=== PATIENT | female | born 1975 | race Caucasian/White ===

== ENCOUNTER 2017-06-26 19:31 | Inpatient (IN) | payer OTHER, MEDICAID ==
[~2017-06-26] VITALS: Ht 162.6 cm; Wt 103.4 kg
[~2017-06-26 19:31] MED LIST: ACYCLOVIR 400400 MG PO; ALBUTEROL2.5 MG/0.5 INH; AMOXICILLIN 50500 MG PO; ASPIR 8181 MG; AUGMENTIN 875-1 EACH PO; AUGMENTIN 875875 MG PO; BENTYL 10 MG CA10 M1 PO; CELEXA20 MG PO; CHOLESTYRAMINE P4 GM PO; CHOLESTYRAMINE R5 GM MC; CIPRO500 MG PO; COLACE100 MG PO; FLEXERIL PO; GLUCOPHAGE500 MG PO; HYDROCHLOROTH12.5 M1 PO; HYDROCODONE-AP1 EAC6 PO; HYDROXYZINE HCL25 M1 PO; IBUPROFEN 800800 M1 PO; LANTUS SOL100 UNIT/1 SQ; LISINOPRIL-HCT1 EACH PO; LISINOPRIL10 MG PO; METFORMIN HCL500 MG PO; MICROZIDE12.5 MG PO; NEURONTIN600 MG PO; NORVASC2.5 MG PO; OMEGA-31000 M1 PO; OMEPRAZOLE20 M2 PO; PERCOCET 5-3251 EACH PO; PHENERGAN 25 MG25 M1 PO; PHENERGAN 25 MG25 MG PO; PHENERGAN25 M1 RC; PREDNISONE 10 M10 MG PO; PRILOSEC 20 MG20 MG PO; PROAIR HFA8.5 GM INH; PROCARDIA10 MG PO; PROTONIX40 M4 PO; PULMICORT0.5 MG/22 INH; SIMVASTATIN20 MG PO; SYMBICORT160 MCG/4. INH; SYMBICORT80 MCG/4.1; TIZANIDINE HCL4 M1 PO; TOPAMAX 25 MG T25 M1 PO; TRAMADOL 50 MG50 MG; TRAZODONE HCL50 MG PO; TRICOR145 MG PO; VICTOZA0.6 MG/0.1 SUBQ; WELLBUTRIN SR100 MG PO; ZANTAC 150MG T150 MG PO; ZESTORETIC 10-1 EACH PO; ZESTORETIC 20-1 EAC3; ZOCOR20 MG PO
[2017-06-26 19:35] VITALS: BP 138/75
[2017-06-26 20:08] LABS: HEMATOCRIT 43.4 % (37.0-47.0); HEMOGLOBIN 14.6 gm/dL (12.0-15.0); MCH 30.5 pg (26.0-34.0); MCHC 33.5 g/dL (28.0-37.0); MCV 91.1 fL (80.0-100.0); MPV 7.7 fl. (7.2-11.1); NUCLEATED RBCS 0 /100WBC; PLATELET COUNT* 457 thou/uL (150-400); RBC 4.77 mil/uL (4.20-5.00)
[2017-06-26 20:17] LABS: ANION GAP 10 mmol/L (7-16); BUN 13 mg/dL (7-18); CALCIUM 8.9 mg/dL (8.5-10.1); CHLORIDE 93 mmol/L (98-107); CO2 28 mmol/L (21-32); CREATININE 0.7 mg/dL (0.6-1.3); GLUCOSE 246 mg/dL (70-99); POTASSIUM 3.5 mmol/L (3.5-5.1); SODIUM 131 mmol/L (136-145)
[2017-06-26 20:22] LABS: ABSOLUTE LYMPHOCYTES 4.8 thou/uL (0.8-5.3); ABSOLUTE MONOCYTES 1.3 thou/uL (0.0-1.2); ABSOLUTE NEUTROPHILS 14.9 thou/uL (1.6-8.1); PLATELET ESTIMATE ADEQUATE
[2017-06-26 20:32] LABS: ALBUMIN 3.5 g/dL (3.4-5.0); ALKALINE PHOSPHATASE 99 U/L (46-116); LIPASE 97 U/L (73-393); NT-PRO BRAIN NAT PEPTIDE 23 pg/mL (<300); SGOT 20 U/L (15-37); SGPT 36 U/L (30-65); TOTAL BILIRUBIN 0.4 mg/dL (<0.1-1.0); TOTAL PROTEIN 7.9 g/dL (6.4-8.2); TROPONIN-I LEVEL <0.06 ng/mL (<0.06)
[2017-06-26 22:56] LABS: INFLUENZA A ANTIGEN None Detected (None Detect); INFLUENZA B ANTIGEN None Detected (None Detect)
[2017-06-26 23:07] VITALS: BP 147/78
[2017-06-27 00:27] VITALS: BP 137/77
[2017-06-27 00:50] VITALS: BP 137/77
[2017-06-27 04:19] VITALS: BP 137/77
[2017-06-27 04:25] LABS: URINE BILIRUBIN NEGATIVE (Negative); URINE BLOOD NEGATIVE (Negative); URINE CLARITY CLEAR; URINE COLOR YELLOW; URINE GLUCOSE-RANDOM 3+ (Negative); URINE KETONES NEGATIVE (Negative); URINE LEUKOCYTES-REFLEX NEGATIVE (Negative); URINE NITRITE-REFLEX NEGATIVE (Negative); URINE PROTEIN NEGATIVE (Negative); URINE SPECIFIC GRAVITY <= 1.005 (1.005-1.030); URINE UROBILINOGEN 0.2 E.U./dl (0.2-1.0)
--- NOTE | 2017-06-27 06:35 | NUR ---
PT ADMITTED WITH COPD EXACERBATION AND HYPOXIA. PT IS ON 4L PER NC WITH [place] SATS. PT GETS BREATHING TX Q4 AND PRN. PT GIVEN IV SOLUMEDROL AND LEVAQUIN IN ED. PT FLU SWAB WAS NEGATIVE. PT DENIES NEED FOR PAIN MEDICATION. PT DENIES N/V. PT HAS IV FLUIDS INFUSING IN LEFT FOREARM. PT IS UP AD FLORA WITH STEADY GAIT. PT HAS NO OTHER CONCERNS AT THIS TIME. SEE ASSESSMENT AND VITALS FOR OTHER DETAILS. CALL LIGHT WITHIN REACH, WILL CONTINUE TO MONITOR
[2017-06-27 09:45] VITALS: BP 128/77
--- NOTE | 2017-06-27 15:34 | EKG ---
[place] [address] ELECTROCARDIOGRAM REPORT Name: OPAL DOVE Room: [address] ADM IN M.R.#: [id number] Admission: 06/26/17 Attend Phys: Simi Dale MD Discharge: Date of : 75 Report #: [id number] THIS REPORT FOR: //name// [facility] ED Test Date: 2017-06-26 Test Time: 19:57:57 Pat Name: OPAL DOVE Department: Room: [facility] Gender: F Process Helper: KATH : 1975 Requested By: Juana Ovalle Order Number: [id number] : Ariel Aquino Measurements Intervals [place] Rate: 107 P: 7 DC: 157 QRS: 12 QRSD: 65 T: 46 QT: 313 QTc: 418 Interpretive Statements Sinus tachycardia Low voltage, precordial leads Compared to ECG 11/30/2016 09:16:59 Low QRS voltage now present Heart rate has increased Electronically Signed On 06-27-2017 15:34:04 COATING MIXER by Ariel Aquino [email or web address] <ELECTRONICALLY SIGNED> By: Ariel Aquino MD, [facility] 06/27/17 1534 56 56 Ariel Aquino MD, [facility] /EPI
[2017-06-27 15:44] VITALS: BP 134/87
--- NOTE | 2017-06-27 16:01 | NUR ---
INTRODUCED ROLE OF CM TO PT. SHE REMEMBERED ME FROM WHEN SHE WAS IN IN OCT. SHE SAID SHE LIVES WITH HER . SHE IS MAINLY INDEPENDENT AT HOME. DRIVES,COOKS,ETC. SHE HAS BACK PROBLEMS AND HER HELPS HER NEEDED. SHE HAS O2 FROM [facility] AND HOME NEBULIZER. SHE DOES NOT FEEL SHE WILL HAVE ANY DISCHARGE NEEDS.
[2017-06-27 17:33] LABS: HCO3 25.5 mmol/L (22.0-26.0); PCO2 40.1 mmHg (35.0-45.0); pH 7.421 (7.340-7.450)
--- NOTE | 2017-06-27 17:48 | NUR ---
PATIENT IS ALERT AND ORIENTED TODAY UP AD FLORA IN ROOM. PATIENT IS ON 4 LITERS OF OXYGEN THROUGH NASAL CANNULA. VITAL SIGNS STABLE. NO COMPLAINTS OF ANY PAIN TODAY. CALL LIGHT IN REACH, WILL CONTINUE TO MONITOR.
[2017-06-28] VITALS: BP 128/76
[2017-06-28 04:52] LABS: ABSOLUTE BASOPHILS 0.2 thou/uL (0.0-0.2); ABSOLUTE LYMPHOCYTES 1.8 thou/uL (0.8-5.3); ABSOLUTE MONOCYTES 0.9 thou/uL (0.0-1.2); ABSOLUTE NEUTROPHILS 22.7 thou/uL (1.6-8.1); BASOPHILS 0.8 %; HEMATOCRIT 39.8 % (37.0-47.0); HEMOGLOBIN 13.3 gm/dL (12.0-15.0); LYMPHOCYTES 7.1 %; MCH 30.6 pg (26.0-34.0); MCHC 33.4 g/dL (28.0-37.0); MCV 91.8 fL (80.0-100.0); MONOCYTES 3.7 %; MPV 7.7 fl. (7.2-11.1); NUCLEATED RBCS 0 /100WBC; PLATELET COUNT* 485 thou/uL (150-400); POLYS 88.4 %; RBC 4.33 mil/uL (4.20-5.00); RDW-CV 14.1 % (10.5-14.5); WBC 25.7 thou/uL (4.0-11.0)
[2017-06-28 05:02] LABS: ALBUMIN 3.2 g/dL (3.4-5.0); CALCIUM 8.4 mg/dL (8.5-10.1); CREATININE 0.7 mg/dL (0.6-1.3); MAGNESIUM 1.8 mg/dL (1.8-2.4); POTASSIUM 3.9 mmol/L (3.5-5.1); TOTAL BILIRUBIN 0.4 mg/dL (<0.1-1.0); TOTAL PROTEIN 7.3 g/dL (6.4-8.2)
--- NOTE | 2017-06-28 05:03 | NUR ---
PATIENT SLEPT WELL DURING THIS SHIFT. PT ALERT/ORIENTED X4 AND PLEASANT. PT SITTING IN CHAIR AT BEGINNING OF SHIFT WITHOUT OXYGEN. SATS TAKEN AND PT FOUND TO BE AT 84%. NASAL CANNULA REPLACED AND OXYGEN SET AT 2 LITERS DOWN FROM 4 LITERS. RECHECKED PATIENT IN AN HOUR AND PT FOUND TO BE AT 90-91% ON 2LITERS. PT GIVEN TWO TYLENOL AT HS FOR HEADACHE. AT BEDSIDE AND STAYED THE NIGHT. FREQUENTLY USED ITEMS AND CALL LIGHT WITHIN REACH. SIDERAILS UPX2. WILL CONTINUE TO MONITOR.
[2017-06-28 09:00] VITALS: BP 137/73
[2017-06-28 15:54] VITALS: BP 131/84
--- NOTE | 2017-06-28 18:50 | NUR ---
PATIENT IS ALERT AND ORIENTED TODAY VERY PLEASANT TODAY. UP AD FLORA IN ROOM WITH EXTENSION ON OXYGEN TUBING. VITAL SIGNS STABLE ON 2 LITERS OF OXYGEN THROUGH NASAL CANNULA. NO COMPLAINTS OF PAIN OR NAUSEA TODAY. BLOOD SUGARS HAVE BEEN ELEVATED, HAS BEEN EATING OUTSIDE FOOD THAT FAMILY IS BRINGING IN. INSULIN HAS BEEN INCREASED AND STEROIDS HAVE BEEN DECREASED. CALL LIGHT IN REACH, FAMILY AT BEDSIDE, WILL CONTINUE TO MONITOR.
[2017-06-28 19:50] VITALS: BP 143/78
[2017-06-28] MEDS ORDERED: METFORMIN HCL500 MG PO (21:45)
[2017-06-28 23:50] VITALS: BP 136/70
[2017-06-29 04:26] LABS: HEMATOCRIT 40.3 % (37.0-47.0); HEMOGLOBIN 13.2 gm/dL (12.0-15.0); MCH 30.4 pg (26.0-34.0); MCHC 32.9 g/dL (28.0-37.0); MCV 92.5 fL (80.0-100.0); MPV 7.6 fl. (7.2-11.1); RBC 4.35 mil/uL (4.20-5.00); RDW-CV 14.1 % (10.5-14.5); WBC 22.3 thou/uL (4.0-11.0)
[2017-06-29 04:37] LABS: CALCIUM 8.7 mg/dL (8.5-10.1); CREATININE 0.8 mg/dL (0.6-1.3); MAGNESIUM 2.1 mg/dL (1.8-2.4); POTASSIUM 4.4 mmol/L (3.5-5.1)
[2017-06-29 06:18] VITALS: BP 138/81
[2017-06-29 11:00] VITALS: BP 128/79
--- NOTE | 2017-06-29 14:06 | NUR ---
PATIENT IS ALERT AND ORIENTED TODAY VERY PLEASANT. UP AD FLORA IN ROOM WITH EXTENDED OXYGEN TUBING. NO COMPLAINTS OF ANY PAIN TODAY. IV IN LEFT HAND WORKS WELL FOR ANTIBIOTICS. OXYGEN LEVELS HAVE BEEN GOOD ON 2 LITERS OF OXYGEN. VITAL SIGNS STABLE. CALL LIGHT IN REACH, WILL GREGG TO MONITOR.
--- NOTE | 2017-06-29 16:12 | NUR ---
ASSUMED CARE OF PATIENT AT 1500. REPORT RECEIVED FROM ROSSANA DEE. CONTINUES ON [employer] AVIONICS, TRACING NSR. AGREE WITH PREVIOUS ASSESSMENT. UP IN CHAIR AT PRESENT TIME. CALL LIGHT WITHIN REACH. WILL CONTINUE WITH PLAN OF CARE.
[2017-06-29 17:21] VITALS: BP 179/85
--- NOTE | 2017-06-29 18:54 | NUR ---
PATIENT HAS DENIED PAIN WHEN ASKED. CONTINUES ON ROOM AIR WITH O2 SATS 92-94%. CLIENT SERVICE ADMINISTRATOR DC'D. PATIENT'S HOME MEDS RESUMED. PATIENT UP AD FOLRA IN ROOM. SALINE LOCK PATENT. HOPEFUL TO BE DISCHARGED SOON. HOURLY ROUNDING COMPLETED. CALL LIGHT WITHIN REACH. WILL CONTINUE WITH PLAN OF CARE.
[2017-06-29 20:00] VITALS: BP 146/74
--- NOTE | 2017-06-30 03:53 | NUR ---
ASSUMED CARE OF PATIENT AT 1900 THE PATIENT AMBULATED TO SHOWER AT SHIFT START O2 SAT MAINTAINED ON RA 92% CONTINUES TO BE UP AD FLORA DENIES ACUTE PAIN N/V,SOA DISTRESS THE ROUTINE REGIMEN CONTINUES TO BE EFFECTIVE FOR SX MANAGEMENT SAFETY INTERVENTIONS CONTINUE BED LOWERED WHEELS LOCKED CALL LIGHT IN REACH SIDE RAILS UP REPORT TO BE GIVEN TO ONCMARIE TRACY
[2017-06-30 04:16] LABS: HEMATOCRIT 39.1 % (37.0-47.0); MCH 30.6 pg (26.0-34.0); MCHC 33.3 g/dL (28.0-37.0); MCV 91.9 fL (80.0-100.0); MPV 7.4 fl. (7.2-11.1); RBC 4.26 mil/uL (4.20-5.00); RDW-CV 14.3 % (10.5-14.5); WBC 17.8 thou/uL (4.0-11.0)
[2017-06-30 04:34] LABS: ALBUMIN 2.8 g/dL (3.4-5.0); CALCIUM 8.7 mg/dL (8.5-10.1); CREATININE 0.7 mg/dL (0.6-1.3); MAGNESIUM 1.6 mg/dL (1.8-2.4); TOTAL BILIRUBIN 0.3 mg/dL (<0.1-1.0); TOTAL PROTEIN 6.6 g/dL (6.4-8.2)
[2017-06-30 04:35] LABS: POTASSIUM 3.3 mmol/L (3.5-5.1)
[2017-06-30 08:00] VITALS: BP 122/71
--- NOTE | 2017-06-30 10:34 | NUR ---
ASSUMED CARE OF PT AROUND 0830 THIS AM. REFER TO ASSESSMENT. PT WANTS TO GO HOME TODAY. AWAITING PHYSICIAN FOR DISCHARGE ORDERS. PT'S POTASSIUM AND MAGNESIUM REPLACED THIS SHIFT. NO OTHER CONCERNS AT THIS TIME. CLWR. WCTM.
[2017-06-30] MEDS ORDERED: PREDNISONE 10 M10 MG PO (13:24)
[2017-06-30 13:26] LABS: MAGNESIUM 1.8 mg/dL (1.8-2.4)
[2017-06-30] MEDS ORDERED: LEVAQUIN 750 M750 MG PO (13:26)
[2017-06-30 13:27] VITALS: BP 122/71
[2017-06-30 13:30] LABS: POTASSIUM 5.4 mmol/L (3.5-5.1)
[2017-06-30] MEDS ORDERED: NICOTINE TRANSD21 M1 TOP (13:33)
--- NOTE | 2017-06-30 14:03 | NUR ---
PT GIVEN DISCHARGE INSTRUCTIONS. VERBALIZES UNDERSTANDING. SCRIPTS GIVEN TO PT. PT DISCHARGED PER W/C AND NURSING STAFF WITH SPOUSE AND PRIVATE VEHICLE. PT REPORTS DISCHARGED WITH ALL BELONGINGS. NO OTHER CONCERNS AT THIS TIME.
== END 2017-06-30 14:00 | disposition home or self-care (01) | DRG 189 ==
LOC: M.ERS 19:31 → M.TBA-ER 21:56 → M.3W 21:56
PROVIDERS: Family Medicine; Personal Emergency Response Attendant; Physician Assistant; ADMIT Internal Medicine
DX: J96.01 Acute respiratory failure with hypoxia (principal); J44.1 Chronic obstructive pulmonary disease with (acute) exacerbation; I10 Essential (primary) hypertension; E66.01 Morbid (severe) obesity due to excess calories; J40 Bronchitis, not specified as acute or chronic; E11.65 Type 2 diabetes mellitus with hyperglycemia; F17.210 Nicotine dependence, cigarettes, uncomplicated; Z99.81 Dependence on supplemental oxygen; Z90.49 Acquired absence of other specified parts of digestive tract; Z90.710 Acquired absence of both cervix and uterus; Z68.39 Body mass index [BMI] 39.0-39.9, adult; Z88.1 Allergy status to other antibiotic agents; Z79.4 Long term (current) use of insulin; Z79.899 Other long term (current) drug therapy; Z71.6 Tobacco abuse counseling

== ENCOUNTER 2017-12-10 19:44 | Emergency (ER) | payer OTHER, MEDICAID ==
[~2017-12-10] VITALS: Ht 162.6 cm; Wt 103.4 kg
[~2017-12-10 19:44] MED LIST changes: +LEVAQUIN 750 M750 MG PO; +NICOTINE TRANSD21 M1 TOP
[2017-12-10 20:11] LABS: ABSOLUTE BASOPHILS 0.2 thou/uL (0.0-0.2); ABSOLUTE EOSINOPHILS 0.4 thou/uL (0.0-0.7); ABSOLUTE LYMPHOCYTES 4.5 thou/uL (0.8-5.3); ABSOLUTE MONOCYTES 0.7 thou/uL (0.0-1.2); ABSOLUTE NEUTROPHILS 6.7 thou/uL (1.6-8.1); BASOPHILS 1.4 %; EOSINOPHILS 2.9 %; HEMATOCRIT 39.5 % (37.0-47.0); HEMOGLOBIN 13.6 gm/dL (12.0-15.0); MCH 31.6 pg (26.0-34.0); MCHC 34.5 g/dL (28.0-37.0); MCV 91.4 fL (80.0-100.0); MONOCYTES 5.7 %; MPV 7.6 fl. (7.2-11.1); NUCLEATED RBCS 0 /100WBC; PLATELET COUNT* 438 thou/uL (150-400); RBC 4.32 mil/uL (4.20-5.00); RDW-CV 12.8 % (10.5-14.5); WBC 12.5 thou/uL (4.0-11.0)
[2017-12-10] MEDS ORDERED: SYMBICORT160 MCG/4. INH (20:11)
[2017-12-10 20:19] LABS: ANION GAP 10 mmol/L (7-16); BUN 11 mg/dL (7-18); CALCIUM 8.8 mg/dL (8.5-10.1); CHLORIDE 100 mmol/L (98-107); CO2 27 mmol/L (21-32); CREATININE 0.7 mg/dL (0.6-1.3); GLUCOSE 211 mg/dL (70-99); POTASSIUM 3.6 mmol/L (3.5-5.1); SODIUM 137 mmol/L (136-145)
[2017-12-10] MEDS ORDERED: ROBAXIN 750 MG750 M1 PO (20:20)
[2017-12-10] MEDS ORDERED: NORCO 5-325 TA1 EACH PO (20:21)
[2017-12-10] MEDS ORDERED: NIFEDIPINE10 MG PO (20:21)
[2017-12-10] MEDS ORDERED: CREON DR 24,001 EACH PO (20:21)
[2017-12-10] MEDS ORDERED: ONDANSETRON HCL4 M2 PO (20:22)
[2017-12-10] MEDS ORDERED: ZESTORETIC 10-1 EACH PO (20:22)
[2017-12-10] MEDS ORDERED: BIOTIN10000 MC1 PO (20:25)
[2017-12-10 20:26] LABS: ALBUMIN 3.5 g/dL (3.4-5.0); ALKALINE PHOSPHATASE 55 U/L (46-116); LIPASE 102 U/L (73-393); SGOT 26 U/L (15-37); SGPT 55 U/L (30-65); TOTAL BILIRUBIN 0.3 mg/dL (<0.1-1.0); TOTAL PROTEIN 6.9 g/dL (6.4-8.2); TROPONIN-I LEVEL <0.06 ng/mL (<0.06)
[2017-12-10] MEDS ORDERED: CENTRUM WOMEN1 EACH PO (20:26)
[2017-12-10] MEDS ORDERED: CALCIUM 500 +1 EAC5 PO (20:26)
[2017-12-10] MEDS ORDERED: B12INJ (20:27)
[2017-12-10] MEDS ORDERED: ZYRTEC10 M5 PO (20:28)
[2017-12-10] MEDS ORDERED: CARAFATE 1 GM TA1 GM PO (21:05)
[2017-12-10 21:12] LABS: URINE BILIRUBIN NEGATIVE (Negative); URINE BLOOD NEGATIVE (Negative); URINE CLARITY CLEAR; URINE COLOR YELLOW; URINE GLUCOSE-RANDOM NEGATIVE (Negative); URINE KETONES NEGATIVE (Negative); URINE LEUKOCYTES-REFLEX NEGATIVE (Negative); URINE NITRITE-REFLEX NEGATIVE (Negative); URINE PROTEIN NEGATIVE (Negative); URINE SPECIFIC GRAVITY 1.025 (1.005-1.030); URINE UROBILINOGEN 0.2 E.U./dl (0.2-1.0)
[2017-12-10 21:29] VITALS: BP 128/73
--- NOTE | 2017-12-11 10:37 | EKG ---
[place] [address] ELECTROCARDIOGRAM REPORT Name: DERRELLOPAL Room: [facility]#: [id number] Admission: 12/10/17 Attend Phys: Discharge: 12/10/17 Date of : 75 Report #: [id number] THIS REPORT FOR: //name// [facility] ED Test Date: 2017-12-10 Test Time: 19:54:32 Pat Name: OPAL DOVE Department: Room: Gender: F Electronic Calibration Technician: BRENNON : 1975 Requested By: Ericka Childress Order Number: [id number] MD: Ricardo Atkinson Measurements Intervals [place] Rate: 91 P: 6 AL: 161 QRS: -16 QRSD: 82 T: 29 QT: 356 QTc: 439 Interpretive Statements Sinus rhythm Borderline left axis deviation Compared to ECG 06/26/2017 19:57:57 Sinus tachycardia no longer present Electronically Signed On 12-11-2017 10:37:46 CDT by Ricardo Atkinson [email or web address] <ELECTRONICALLY SIGNED> By: Ricardo Atkinson MD, [facility] 12/11/17 1037 53 53 Ricardo Atkinson MD, FACC /EPI
== END 2017-12-10 21:30 | disposition home or self-care (01) ==
LOC: M.ERS 19:44
PROVIDERS: Emergency Medicine
DX: R07.89 Other chest pain (principal); I10 Essential (primary) hypertension; J44.9 Chronic obstructive pulmonary disease, unspecified; E11.9 Type 2 diabetes mellitus without complications; E66.01 Morbid (severe) obesity due to excess calories; F17.210 Nicotine dependence, cigarettes, uncomplicated; Z68.39 Body mass index [BMI] 39.0-39.9, adult; Z90.710 Acquired absence of both cervix and uterus; Z88.1 Allergy status to other antibiotic agents; Z79.4 Long term (current) use of insulin

== ENCOUNTER 2018-03-27 20:15 | Emergency (ER) | payer OTHER, MEDICAID ==
[~2018-03-27] VITALS: Ht 162.6 cm; Wt 103.4 kg
[~2018-03-27 20:15] MED LIST changes: +B12INJ; +BIOTIN10000 MC1 PO; +CALCIUM 500 +1 EAC5 PO; +CARAFATE 1 GM TA1 GM PO; +CENTRUM WOMEN1 EACH PO; +CREON DR 24,001 EACH PO; +NIFEDIPINE10 MG PO; +NORCO 5-325 TA1 EACH PO; +ONDANSETRON HCL4 M2 PO; +ROBAXIN 750 MG750 M1 PO; +ZYRTEC10 M5 PO
[2018-03-27] MEDS ORDERED: FISH OIL 1,001000 M2 PO (20:27)
[2018-03-27 21:09] LABS: URINE BILIRUBIN NEGATIVE (Negative); URINE BLOOD NEGATIVE (Negative); URINE CLARITY CLEAR; URINE COLOR YELLOW; URINE GLUCOSE-RANDOM NEGATIVE (Negative); URINE KETONES NEGATIVE (Negative); URINE LEUKOCYTES NEGATIVE (Negative); URINE NITRITE NEGATIVE (Negative); URINE PROTEIN NEGATIVE (Negative); URINE SPECIFIC GRAVITY 1.015 (1.005-1.030)
[2018-03-27 21:14] LABS: ABSOLUTE BASOPHILS 0.1 thou/uL (0.0-0.2); ABSOLUTE EOSINOPHILS 0.4 thou/uL (0.0-0.7); ABSOLUTE LYMPHOCYTES 5.4 thou/uL (0.8-5.3); ABSOLUTE MONOCYTES 0.8 thou/uL (0.0-1.2); ABSOLUTE NEUTROPHILS 6.8 thou/uL (1.6-8.1); BASOPHILS 0.9 %; EOSINOPHILS 2.8 %; HEMATOCRIT 40.6 % (37.0-47.0); HEMOGLOBIN 13.7 gm/dL (12.0-15.0); MCHC 33.6 g/dL (28.0-37.0); MCV 92.2 fL (80.0-100.0); MONOCYTES 5.8 %; MPV 7.5 fl. (7.2-11.1); NUCLEATED RBCS 0 /100WBC; PLATELET COUNT* 448 thou/uL (150-400); POLYS 50.5 %; RBC 4.41 mil/uL (4.20-5.00); RDW-CV 12.7 % (10.5-14.5); WBC 13.5 thou/uL (4.0-11.0)
[2018-03-27 21:17] LABS: AMP/METHAMP Negative (Negative); BARBITURATES Negative (Negative); BENZODIAZEPINES Negative (Negative); COCAINE Negative (Negative); METHADONE Negative (Negative); OPIATES Negative (Negative); PCP Negative (Negative); THC Negative (Negative)
[2018-03-27 21:22] LABS: ANION GAP 6 mmol/L (7-16); BUN 11 mg/dL (7-18); CALCIUM 9.4 mg/dL (8.5-10.1); CHLORIDE 99 mmol/L (98-107); CO2 27 mmol/L (21-32); CREATININE 0.8 mg/dL (0.6-1.3); GLUCOSE 241 mg/dL (70-99); POTASSIUM 3.6 mmol/L (3.5-5.1); SODIUM 132 mmol/L (136-145)
[2018-03-27 21:29] LABS: ALBUMIN 3.9 g/dL (3.4-5.0); ALKALINE PHOSPHATASE 52 U/L (46-116); AMYLASE 27 U/L (25-115); LIPASE 134 U/L (73-393); SGOT 16 U/L (15-37); SGPT 36 U/L (30-65); TOTAL BILIRUBIN 0.3 mg/dL (<0.1-1.0); TOTAL PROTEIN 7.3 g/dL (6.4-8.2); TROPONIN-I LEVEL <0.06 ng/mL (<0.06)
[2018-03-27] MEDS ORDERED: PHENERGAN 25 MG25 M1 PO (23:25)
[2018-03-27] MEDS ORDERED: NORCO 5-325 TA1 EACH PO (23:25)
[2018-03-27 23:49] VITALS: BP 135/81
--- NOTE | 2018-03-28 16:40 | EKG ---
[place] [address] ELECTROCARDIOGRAM REPORT Name: DOVEOPAL Room: [facility]#: [id number] Admission: 03/27/18 Attend Phys: Discharge: 03/27/18 Date of : 75 Report #: [id number] THIS REPORT FOR: //name// [facility] ED Test Date: 2018-03-27 Test Time: 21:23:50 Pat Name: OPAL DOVE Department: Room: Gender: F Head Sugar Reprocess Operator: : 1975 Requested By: Lisbeth Ahmadi Order Number: [id number] : Ariel Aquino Measurements Intervals [place] Rate: 87 P: 27 MA: 169 QRS: -5 QRSD: 85 T: 26 QT: 358 QTc: 431 Interpretive Statements Sinus rhythm Compared to ECG 12/10/2017 19:54:32 No significant changes Electronically Signed On 03-28-2018 16:39:56 CDT by Ariel Aquino [email or web address] <ELECTRONICALLY SIGNED> By: Ariel Aquino MD, FACC 03/28/18 1639 [id number] Ariel Aquino MD, FACC /EPI
== END 2018-03-27 23:51 | disposition home or self-care (01) ==
LOC: M.ERS 20:15
PROVIDERS: Nurse Practitioner Family
DX: R10.11 Right upper quadrant pain (principal); E11.65 Type 2 diabetes mellitus with hyperglycemia; N83.202 Unspecified ovarian cyst, left side; I10 Essential (primary) hypertension; J45.909 Unspecified asthma, uncomplicated; Z90.49 Acquired absence of other specified parts of digestive tract; Z98.890 Other specified postprocedural states; J44.9 Chronic obstructive pulmonary disease, unspecified; E66.01 Morbid (severe) obesity due to excess calories; Z68.39 Body mass index [BMI] 39.0-39.9, adult; F17.210 Nicotine dependence, cigarettes, uncomplicated; Z88.1 Allergy status to other antibiotic agents

== ENCOUNTER 2018-08-23 17:07 | Emergency (ER) | payer OTHER, MEDICAID ==
[~2018-08-23] VITALS: Ht 162.6 cm; Wt 101.2 kg
[~2018-08-23 17:07] MED LIST changes: +FISH OIL 1,001000 M2 PO
[2018-08-23] MEDS ORDERED: ROBAXIN500 MG PO (17:31)
[2018-08-23] MEDS ORDERED: IBUPROFEN 800800 M1 PO (17:31)
[2018-08-23 18:12] VITALS: BP 141/82
== END 2018-08-23 18:12 | disposition home or self-care (01) ==
LOC: M.ERS 17:07
DX: S43.081A Other subluxation of right shoulder joint, initial encounter (principal); F17.210 Nicotine dependence, cigarettes, uncomplicated; I10 Essential (primary) hypertension; J45.909 Unspecified asthma, uncomplicated; J44.9 Chronic obstructive pulmonary disease, unspecified; E11.9 Type 2 diabetes mellitus without complications; E66.01 Morbid (severe) obesity due to excess calories; Z68.38 Body mass index [BMI] 38.0-38.9, adult; Z79.4 Long term (current) use of insulin; Z88.1 Allergy status to other antibiotic agents; Z98.890 Other specified postprocedural states; Z90.89 Acquired absence of other organs; Z90.710 Acquired absence of both cervix and uterus; Z90.49 Acquired absence of other specified parts of digestive tract; X50.1XXA Overexertion from prolonged static or awkward postures, initial encounter; Y92.89 Other specified places as the place of occurrence of the external cause; Y93.89 Activity, other specified; Y99.8 Other external cause status

== ENCOUNTER 2018-12-12 15:50 | Emergency (ER) | payer OTHER, MEDICAID ==
[~2018-12-12] VITALS: Ht 162.6 cm; Wt 103.4 kg
[~2018-12-12 15:50] MED LIST changes: +ROBAXIN500 MG PO
[2018-12-12 16:10] LABS: URINE BILIRUBIN NEGATIVE (Negative); URINE BLOOD NEGATIVE (Negative); URINE CLARITY CLEAR; URINE COLOR YELLOW; URINE GLUCOSE-RANDOM NEGATIVE (Negative); URINE KETONES NEGATIVE (Negative); URINE LEUKOCYTES-REFLEX NEGATIVE (Negative); URINE NITRITE-REFLEX NEGATIVE (Negative); URINE PROTEIN NEGATIVE (Negative); URINE UROBILINOGEN 0.2 E.U./dl (0.2-1.0)
[2018-12-12 16:47] LABS: ABSOLUTE BASOPHILS 0.2 thou/uL (0.0-0.2); ABSOLUTE EOSINOPHILS 0.2 thou/uL (0.0-0.7); ABSOLUTE MONOCYTES 0.8 thou/uL (0.0-1.2); ABSOLUTE NEUTROPHILS 8.7 thou/uL (1.6-8.1); BASOPHILS 1.4 %; EOSINOPHILS 1.7 %; HEMOGLOBIN 13.3 gm/dL (12.0-15.0); LYMPHOCYTES 28.6 %; MCH 30.7 pg (26.0-34.0); MCHC 33.2 g/dL (28.0-37.0); MCV 92.4 fL (80.0-100.0); MONOCYTES 5.9 %; MPV 7.7 fl. (7.2-11.1); NUCLEATED RBCS 0 /100WBC; PLATELET COUNT* 471 thou/uL (150-400); POLYS 62.4 %; RBC 4.33 mil/uL (4.20-5.00); RDW-CV 13.6 % (10.5-14.5)
[2018-12-12 16:52] LABS: CALCIUM 8.9 mg/dL (8.5-10.1); POTASSIUM 3.9 mmol/L (3.5-5.1)
[2018-12-12 16:56] LABS: ALBUMIN 3.5 g/dL (3.4-5.0); TOTAL BILIRUBIN 0.3 mg/dL (<0.1-1.0); TOTAL PROTEIN 6.8 g/dL (6.4-8.2)
[2018-12-12 17:17] LABS: AMP/METHAMP Negative (Negative); BARBITURATES Negative (Negative); BENZODIAZEPINES Negative (Negative); COCAINE Negative (Negative); METHADONE Negative (Negative); OPIATES Negative (Negative); PCP Negative (Negative); THC POSITIVE (Negative)
[2018-12-12] MEDS ORDERED: NORCO 5-325 TA1 EAC1 PO (18:26)
[2018-12-12] MEDS ORDERED: CITRATE OF MAG296 ML PO (18:26)
[2018-12-12 18:52] VITALS: BP 113/67
== END 2018-12-12 18:53 | disposition home or self-care (01) ==
LOC: M.ERS 15:50
PROVIDERS: Physician Assistant
DX: R10.13 Epigastric pain (principal); R11.2 Nausea with vomiting, unspecified; F17.210 Nicotine dependence, cigarettes, uncomplicated; I10 Essential (primary) hypertension; J45.909 Unspecified asthma, uncomplicated; E11.9 Type 2 diabetes mellitus without complications; J44.9 Chronic obstructive pulmonary disease, unspecified; E66.01 Morbid (severe) obesity due to excess calories; Z68.39 Body mass index [BMI] 39.0-39.9, adult; Z98.890 Other specified postprocedural states; Z90.49 Acquired absence of other specified parts of digestive tract; Z90.89 Acquired absence of other organs; Z90.710 Acquired absence of both cervix and uterus; Z88.1 Allergy status to other antibiotic agents; Z79.4 Long term (current) use of insulin

== ENCOUNTER 2019-01-11 18:43 | Emergency (ER) | payer OTHER, MEDICAID ==
[~2019-01-11] VITALS: Ht 162.6 cm; Wt 103.4 kg
[~2019-01-11 18:43] MED LIST changes: +CITRATE OF MAG296 ML PO; +NORCO 5-325 TA1 EAC1 PO
[2019-01-11 20:13] LABS: ABSOLUTE BASOPHILS 0.2 thou/uL (0.0-0.2); ABSOLUTE EOSINOPHILS 0.3 thou/uL (0.0-0.7); ABSOLUTE LYMPHOCYTES 3.5 thou/uL (0.8-5.3); ABSOLUTE MONOCYTES 0.7 thou/uL (0.0-1.2); ABSOLUTE NEUTROPHILS 8.8 thou/uL (1.6-8.1); BASOPHILS 1.3 %; EOSINOPHILS 2.4 %; HEMATOCRIT 40.7 % (37.0-47.0); HEMOGLOBIN 13.5 gm/dL (12.0-15.0); MCH 30.5 pg (26.0-34.0); MCHC 33.2 g/dL (28.0-37.0); MONOCYTES 5.4 %; MPV 7.7 fl. (7.2-11.1); NUCLEATED RBCS 0 /100WBC; PLATELET COUNT* 480 thou/uL (150-400); POLYS 64.9 %; RBC 4.43 mil/uL (4.20-5.00); RDW-CV 13.3 % (10.5-14.5); WBC 13.5 thou/uL (4.0-11.0)
[2019-01-11 20:19] LABS: CREATININE 0.9 mg/dL (0.6-1.3); POTASSIUM 4.1 mmol/L (3.5-5.1)
[2019-01-11 20:24] LABS: ALBUMIN 3.6 g/dL (3.4-5.0); TOTAL BILIRUBIN 0.3 mg/dL (<0.1-1.0); TOTAL PROTEIN 7.4 g/dL (6.4-8.2)
[2019-01-11] MEDS ORDERED: ACETAMINOPHEN-1 EAC1 PO (20:35)
[2019-01-11] MEDS ORDERED: FLAGYL500 M1 PO (20:35)
[2019-01-11 21:06] VITALS: BP 135/82
== END 2019-01-11 21:09 | disposition home or self-care (01) ==
LOC: M.ERS 18:43
PROVIDERS: Physician Assistant
DX: E11.65 Type 2 diabetes mellitus with hyperglycemia (principal); K11.20 Sialoadenitis, unspecified; H66.91 Otitis media, unspecified, right ear; I10 Essential (primary) hypertension; J44.9 Chronic obstructive pulmonary disease, unspecified; E66.01 Morbid (severe) obesity due to excess calories; F17.210 Nicotine dependence, cigarettes, uncomplicated; Z68.39 Body mass index [BMI] 39.0-39.9, adult; Z88.1 Allergy status to other antibiotic agents; Z98.890 Other specified postprocedural states; Z90.49 Acquired absence of other specified parts of digestive tract; Z98.51 Tubal ligation status; Z90.710 Acquired absence of both cervix and uterus; Z79.4 Long term (current) use of insulin

== ENCOUNTER 2020-09-22 18:15 | Emergency (ER) | payer OTHER ==
[~2020-09-22] VITALS: Ht 162.6 cm; Wt 99.8 kg
[~2020-09-22 18:15] MED LIST changes: +ACETAMINOPHEN-1 EAC1 PO; +FLAGYL500 M1 PO
[2020-09-22 18:39] LABS: URINE BILIRUBIN NEGATIVE (Negative); URINE BLOOD NEGATIVE (Negative); URINE CLARITY CLEAR; URINE COLOR YELLOW; URINE GLUCOSE-RANDOM NEGATIVE (Negative); URINE KETONES NEGATIVE (Negative); URINE LEUKOCYTES-REFLEX NEGATIVE (Negative); URINE NITRITE-REFLEX NEGATIVE (Negative); URINE PROTEIN NEGATIVE (Negative); URINE SPECIFIC GRAVITY >= 1.030 (1.005-1.030); URINE UROBILINOGEN 0.2 E.U./dl (0.2-1.0)
[2020-09-22] MEDS ORDERED: OMEPRAZOLE40 MG PO (18:41)
[2020-09-22] MEDS ORDERED: LISINOPRIL-HCT1 EACH PO (18:42)
[2020-09-22] MEDS ORDERED: BUPROPION HCL100 MG PO (18:42)
[2020-09-22] MEDS ORDERED: SINGULAIR 10 MG10 M1 PO (18:42)
[2020-09-22] MEDS ORDERED: GLUMETZA1000 (18:42)
[2020-09-22] MEDS ORDERED: ZOFRAN4 MG PO (18:43)
[2020-09-22] MEDS ORDERED: DESYREL150 MG PO (18:43)
[2020-09-22] MEDS ORDERED: CELEXA 20 MG TA20 MG PO (18:43)
[2020-09-22] MEDS ORDERED: LANTUS SUBQ (18:43)
[2020-09-22] MEDS ORDERED: METHOCARBAMOL500 M2 (18:43)
[2020-09-22] MEDS ORDERED: ZYRTEC10 M5 PO (18:44)
[2020-09-22] MEDS ORDERED: ATORVASTATIN CA20 MG PO (18:44)
[2020-09-22] MEDS ORDERED: FENOFIBRATE150 MG PO (18:44)
[2020-09-22] MEDS ORDERED: CALCIUM/VITAMIN D (18:44)
[2020-09-22 18:53] LABS: ABSOLUTE BASOPHILS 0.2 thou/uL (0.0-0.2); ABSOLUTE EOSINOPHILS 0.5 thou/uL (0.0-0.7); ABSOLUTE LYMPHOCYTES 4.6 thou/uL (0.8-5.3); ABSOLUTE MONOCYTES 0.8 thou/uL (0.0-1.2); ABSOLUTE NEUTROPHILS 7.2 thou/uL (1.6-8.1); BASOPHILS 1.3 %; EOSINOPHILS 4.1 %; HEMATOCRIT 38.7 % (37.0-47.0); HEMOGLOBIN 12.6 gm/dL (12.0-15.0); LYMPHOCYTES 34.7 %; MCH 29.4 pg (26.0-34.0); MCHC 32.6 g/dL (28.0-37.0); MCV 90.4 fL (80.0-100.0); MONOCYTES 6.2 %; MPV 6.9 fl. (7.2-11.1); NUCLEATED RBCS 0 /100WBC; PLATELET COUNT* 587 thou/uL (150-400); POLYS 53.7 %; RBC 4.29 mil/uL (4.20-5.00); RDW-CV 14.3 % (10.5-14.5); WBC 13.4 thou/uL (4.0-11.0)
[2020-09-22 19:01] LABS: CALCIUM 9.1 mg/dL (8.5-10.1); CREATININE 0.8 mg/dL (0.6-1.3)
[2020-09-22 19:05] LABS: ALBUMIN 3.3 g/dL (3.4-5.0); TOTAL BILIRUBIN 0.3 mg/dL (<0.1-1.0); TOTAL PROTEIN 7.5 g/dL (6.4-8.2)
[2020-09-22] MEDS ORDERED: PHENERGAN 25 MG25 M1 PO (20:29)
[2020-09-22] MEDS ORDERED: CARAFATE 1 GM TA1 G1 PO (20:30)
[2020-09-22 20:42] VITALS: BP 125/76
== END 2020-09-22 20:40 | disposition home or self-care (01) ==
LOC: M.ERS 18:15
PROVIDERS: Nurse Practitioner
DX: R11.2 Nausea with vomiting, unspecified (principal); R10.13 Epigastric pain; I10 Essential (primary) hypertension; J44.9 Chronic obstructive pulmonary disease, unspecified; E11.9 Type 2 diabetes mellitus without complications; E78.00 Pure hypercholesterolemia, unspecified; E66.01 Morbid (severe) obesity due to excess calories; F17.210 Nicotine dependence, cigarettes, uncomplicated; Z98.890 Other specified postprocedural states; Z98.51 Tubal ligation status; Z88.1 Allergy status to other antibiotic agents; Z90.89 Acquired absence of other organs; Z68.37 Body mass index [BMI] 37.0-37.9, adult; Z90.710 Acquired absence of both cervix and uterus

== ENCOUNTER 2021-03-21 18:07 | Emergency (ER) | payer MEDICARE ==
[~2021-03-21] VITALS: Ht 162.6 cm; Wt 78.0 kg
[~2021-03-21 18:07] MED LIST changes: +ATORVASTATIN CA20 MG PO; +BUPROPION HCL100 MG PO; +CALCIUM/VITAMIN D; +CARAFATE 1 GM TA1 G1 PO; +CELEXA 20 MG TA20 MG PO; +DESYREL150 MG PO; +FENOFIBRATE150 MG PO; +GLUMETZA1000; +LANTUS SUBQ; +METHOCARBAMOL500 M2; +OMEPRAZOLE40 MG PO; +SINGULAIR 10 MG10 M1 PO; +ZOFRAN4 MG PO
[2021-03-21 18:18] VITALS: BP 182/92
== END 2021-03-21 19:07 | disposition home or self-care (01) ==
LOC: M.ERS 18:07
DX: R05 Cough (principal); Z20.822 Contact with and (suspected) exposure to COVID-19; I10 Essential (primary) hypertension; J45.909 Unspecified asthma, uncomplicated; E11.9 Type 2 diabetes mellitus without complications; E66.01 Morbid (severe) obesity due to excess calories; J44.9 Chronic obstructive pulmonary disease, unspecified; F17.210 Nicotine dependence, cigarettes, uncomplicated; Z79.4 Long term (current) use of insulin; Z90.89 Acquired absence of other organs; Z90.49 Acquired absence of other specified parts of digestive tract; Z98.51 Tubal ligation status; Z90.710 Acquired absence of both cervix and uterus; Z79.899 Other long term (current) drug therapy; Z88.1 Allergy status to other antibiotic agents

== ENCOUNTER 2021-03-24 07:58 | Emergency (ER) | payer MEDICARE ==
[~2021-03-24] VITALS: Ht 162.6 cm; Wt 78.0 kg
[2021-03-24 08:47] LABS: ABSOLUTE BASOPHILS 0.1 thou/uL (0.0-0.2); ABSOLUTE EOSINOPHILS 0.3 thou/uL (0.0-0.7); ABSOLUTE LYMPHOCYTES 3.5 thou/uL (0.8-5.3); ABSOLUTE MONOCYTES 1.2 thou/uL (0.0-1.2); ABSOLUTE NEUTROPHILS 9.2 thou/uL (1.6-8.1); BASOPHILS 0.9 %; EOSINOPHILS 2.2 %; HEMATOCRIT 44.3 % (37.0-47.0); HEMOGLOBIN 14.9 gm/dL (12.0-15.0); LYMPHOCYTES 24.6 %; MCH 29.2 pg (26.0-34.0); MCHC 33.7 g/dL (28.0-37.0); MCV 86.5 fL (80.0-100.0); MPV 6.9 fl. (7.2-11.1); NUCLEATED RBCS 0 /100WBC; PLATELET COUNT* 633 thou/uL (150-400); POLYS 64.3 %; RBC 5.12 mil/uL (4.20-5.00); RDW-CV 14.9 % (10.5-14.5); WBC 14.4 thou/uL (4.0-11.0)
[2021-03-24 08:58] LABS: CALCIUM 9.2 mg/dL (8.5-10.1); CREATININE 0.8 mg/dL (0.6-1.3); POTASSIUM 3.7 mmol/L (3.5-5.1)
[2021-03-24 09:02] LABS: ALBUMIN 4.2 g/dL (3.4-5.0); TOTAL BILIRUBIN 0.5 mg/dL (<0.1-1.0); TOTAL PROTEIN 8.2 g/dL (6.4-8.2)
[2021-03-24 10:01] LABS: URINE BILIRUBIN NEGATIVE (Negative); URINE BLOOD NEGATIVE (Negative); URINE CLARITY CLEAR; URINE COLOR YELLOW; URINE GLUCOSE-RANDOM NEGATIVE (Negative); URINE KETONES NEGATIVE (Negative); URINE LEUKOCYTES-REFLEX NEGATIVE (Negative); URINE NITRITE-REFLEX NEGATIVE (Negative); URINE PROTEIN NEGATIVE (Negative); URINE SPECIFIC GRAVITY 1.015 (1.005-1.030); URINE UROBILINOGEN 0.2 E.U./dl (0.2-1.0)
[2021-03-24] MEDS ORDERED: DOXYCYCLINE 10100 MG PO (10:28)
[2021-03-24 10:41] VITALS: BP 172/89
== END 2021-03-24 10:41 | disposition home or self-care (01) ==
LOC: M.ERS 07:58
PROVIDERS: Emergency Medicine
DX: J18.9 Pneumonia, unspecified organism (principal); Z20.822 Contact with and (suspected) exposure to COVID-19; R10.815 Periumbilic abdominal tenderness; J40 Bronchitis, not specified as acute or chronic; J44.9 Chronic obstructive pulmonary disease, unspecified; E66.01 Morbid (severe) obesity due to excess calories; E11.9 Type 2 diabetes mellitus without complications; F17.210 Nicotine dependence, cigarettes, uncomplicated; Z90.89 Acquired absence of other organs; Z90.710 Acquired absence of both cervix and uterus; Z98.51 Tubal ligation status; Z88.1 Allergy status to other antibiotic agents

== ENCOUNTER 2021-03-25 04:08 | Observation (INO) | payer MEDICARE ==
[~2021-03-25] VITALS: Ht 162.6 cm; Wt 78.0 kg
[~2021-03-25 04:08] MED LIST changes: +DOXYCYCLINE 10100 MG PO
[2021-03-25 04:21] VITALS: BP 197/101
[2021-03-25 04:54] LABS: HEMOGLOBIN 14.8 gm/dL (12.0-15.0); MCHC 33.5 g/dL (28.0-37.0); MCV 86.6 fL (80.0-100.0); MPV 6.9 fl. (7.2-11.1); NUCLEATED RBCS 0 /100WBC; PLATELET COUNT* 640 thou/uL (150-400); RBC 5.08 mil/uL (4.20-5.00); RDW-CV 14.8 % (10.5-14.5); WBC 20.9 thou/uL (4.0-11.0)
[2021-03-25 04:55] LABS: URINE BLOOD NEGATIVE (Negative); URINE CLARITY CLEAR; URINE COLOR DARK YELLOW; URINE GLUCOSE-RANDOM NEGATIVE (Negative); URINE KETONES TRACE (Negative); URINE LEUKOCYTES-REFLEX NEGATIVE (Negative); URINE NITRITE-REFLEX NEGATIVE (Negative); URINE PROTEIN 1+ (Negative); URINE SPECIFIC GRAVITY 1.025 (1.005-1.030); URINE UROBILINOGEN 0.2 E.U./dl (0.2-1.0)
[2021-03-25 04:56] LABS: ICTOTEST (BILI CONFIRMATORY) Negative (Negative); URINE BILIRUBIN 1+ (Negative)
[2021-03-25 05:04] LABS: AMP/METHAMP Negative (Negative); BARBITURATES Negative (Negative); BENZODIAZEPINES Negative (Negative); COCAINE Negative (Negative); METHADONE Negative (Negative); OPIATES Negative (Negative); PCP Negative (Negative); THC POSITIVE (Negative)
[2021-03-25 05:05] LABS: CALCIUM 9.1 mg/dL (8.5-10.1); CREATININE 0.7 mg/dL (0.6-1.3); POTASSIUM 3.4 mmol/L (3.5-5.1)
[2021-03-25 05:10] VITALS: BP 180/87
[2021-03-25 05:10] LABS: ALBUMIN 4.3 g/dL (3.4-5.0); MAGNESIUM 1.1 mg/dL (1.8-2.4); TOTAL BILIRUBIN 0.5 mg/dL (<0.1-1.0)
[2021-03-25 05:33] LABS: ABSOLUTE BASOPHILS 0.4 thou/uL (0.0-0.2); ABSOLUTE EOSINOPHILS 0.2 thou/uL (0.0-0.7); ABSOLUTE LYMPHOCYTES 2.5 thou/uL (0.8-5.3); ABSOLUTE MONOCYTES 1.5 thou/uL (0.0-1.2); ABSOLUTE NEUTROPHILS 16.3 thou/uL (1.6-8.1); PLATELET ESTIMATE INCREASED; TOXIC GRANULATION 1+
[2021-03-25 05:42] VITALS: BP 199/90
[2021-03-25 08:00] VITALS: BP 187/103
--- NOTE | 2021-03-25 11:14 | NUR ---
PATIENT LEAVING AMA AT THIS TIME. STATED THAT SHE HAD A FAMILY EMERGENCY. DR. MAGDIEL KEY. PATIENT STATED THAT SHE HAD TO LEAVE NOW AND DID NOT WANT TO WAIT FOR THE DOCTOR TO CALL THIS RN. IV DC'D, COTTON BALL AND TAPE PLACED TO SITE. AMA PAPER SIGNED BY PATIENT AND THIS RN.
== END 2021-03-25 11:11 | disposition left against medical advice (07) ==
LOC: M.ERS 04:08 → M.TBA-ER 04:38 → M.3W 05:24
PROVIDERS: Emergency Medicine; ADMIT Internal Medicine; ATTEND Internal Medicine
DX: K86.1 Other chronic pancreatitis (principal); I10 Essential (primary) hypertension; E11.9 Type 2 diabetes mellitus without complications; J44.9 Chronic obstructive pulmonary disease, unspecified; E66.01 Morbid (severe) obesity due to excess calories; Z79.4 Long term (current) use of insulin; Z79.82 Long term (current) use of aspirin; Z79.899 Other long term (current) drug therapy

== ENCOUNTER 2021-08-14 17:03 | Emergency (ER) | payer BC, MEDICARE ==
[~2021-08-14] VITALS: Ht 160 cm; Wt 108.9 kg
[2021-08-14 18:15] VITALS: BP 133/75
== END 2021-08-14 18:15 | disposition home or self-care (01) ==
LOC: M.ERS 17:03
DX: S61.011A Laceration without foreign body of right thumb without damage to nail, initial encounter (principal); I10 Essential (primary) hypertension; J45.909 Unspecified asthma, uncomplicated; E11.9 Type 2 diabetes mellitus without complications; E78.00 Pure hypercholesterolemia, unspecified; E66.01 Morbid (severe) obesity due to excess calories; J44.9 Chronic obstructive pulmonary disease, unspecified; F17.210 Nicotine dependence, cigarettes, uncomplicated; Z98.890 Other specified postprocedural states; Z90.49 Acquired absence of other specified parts of digestive tract; Z98.51 Tubal ligation status; Z90.89 Acquired absence of other organs; Z90.710 Acquired absence of both cervix and uterus; Z79.4 Long term (current) use of insulin; Z79.51 Long term (current) use of inhaled steroids; Z79.899 Other long term (current) drug therapy; Z88.1 Allergy status to other antibiotic agents; W26.9XXA Contact with unspecified sharp object(s), initial encounter; Y93.89 Activity, other specified; Y92.89 Other specified places as the place of occurrence of the external cause; Y99.8 Other external cause status